=== PATIENT | female | born 1990 | race Caucasian/White ===

== ENCOUNTER 2021-11-23 03:12 | Inpatient (IN) ==
[2021-11-23] MEDS ORDERED: LACTATED RINGER'S 1,000 ML IV SCH ×2 (04:00→06:45)
--- NOTE | 2021-11-23 05:06 | History and Physical Report ---
DATE OF ADMISSION: 11/23/2021 CHIEF COMPLAINT: Ruptured membranes, jeronimo breech presentation. HISTORY OF PRESENT ILLNESS: The patient is a 31-year-old 1, para 0. General health is good. She has had an uneventful course. Her due date is 11/27/2021. Had no problems. She called stating that her membranes had ruptured at about 2:00 a.m. in the morning, she had jeronimo f luid gushing. She was seen on maternity and evaluated. She had jeronimo rupture of membranes. Pelvic exam was suspicious for breech presentation and bedside ultrasound confirmed a breech presentation wi th the head in the upper left quadrant. Presently being prepared for section. ALLERGIES: She has no known drug allergies. MEDICAL HISTORY: No history of rheumatic fever, heart disease, heart murmur, diabetes, tuberculosis. SURGICAL HISTORY: No previous surgery. FAMILY HISTORY: Mom is 50, in good health. Father at 23, motor vehicle accident. She has a hair lf-brother in good health. SOCIAL HISTORY: No smoking, no alcohol intake. Works from home. REVIEW OF SYSTEMS: HEAD: No symptoms of frequent or severe headaches. EYES: No symptoms of blurred vision or double vision. EARS: No symptoms of frequent ear infections, difficulty hearing. NOSE: No symptoms of frequent nosebleeds or difficulty breathing through her nose. THROAT: No symptoms of frequent or severe sore throat or difficulty swallowing. RESPIRATORY SYSTEM: No history of asthma, chest pain, or shortness of breath. PHYSICAL EXAMINATION: GENERAL: Well-developed, well-nourished 31-year-old white female, alert, oriented x3, cooperative, i n no acute distress, appeared her stated age. EYES: Conjunctivae pink. Sclerae white, no evidence of jaundice. EARS: Normal light reflex bilaterally. NOSE: Normal mucosa. Septum is midline. There were no polyps. THROAT: No erythema or evidence of infection. Teeth are in good state of repair. HEAD: Normocephalic, normal distribution of hair. NECK: Supple. Trachea midline. Thyroid is not enlarged. There is no adenopathy appreciated. Both carotids are of good intensity. CHEST: Clear to auscultation and percussion. No wheezes, rales or rhonchi appreciated. ABDOMEN: Term size fetus in breech presentation. Vertex was palpable in upper left quadrant. PELVIC: Cervix is about 80% effaced, posterior 1-2 cm dilated, breech presentation. MUSCULOSKELETAL: Revealed no calf tenderness. IMPRESSION OF THIS CASE: Breech presentation, jeronimo rupture of membranes, early labor. Job ID: [id number]
[2021-11-23 05:09] LABS: Hematocrit (blood only) 34.5 % (34.1-44.9); Hemoglobin 11.5 g/dl (12.0-16.0); Mean Corpuscular Hemoglobin 28.9 pg (25.0-34.0); Mean Corpuscular Hgb Conc 33.3 g/dL (32.0-36.0); Mean Corpuscular Volume 86.7 fL (80.0-100.0); Mean Platelet Volume 9.3 fL (9.4-12.3); Platelet Count 248 K/uL (130-400); RDW Coefficient of Variation 13.7 % (11.5-14.5); RDW Standard Deviation 42.6 fL (36.4-46.3); Red Blood Count 3.98 M/uL (3.93-5.22); White Blood Count 17.49 K/ul (4.8-10.8)
[2021-11-23] MEDS ORDERED: NALOXONE HCL 0.08 MG in SYRINGE 1.8 ML IV PRN (05:27)
[2021-11-23] MEDS ORDERED: NALOXONE HCL 1 MG in SODIUM CHLORIDE 0.9% 1000ML 1,000 ML IV PRN (05:27)
[2021-11-23] MEDS ORDERED: ePHEDrine sulfate 50 MG/ML AMP IV PRN (05:27)
[2021-11-23] MEDS ORDERED: diphenhydrAMINE 50 MG/ML VIAL IV PRN ×2 (05:27→23:28)
[2021-11-23] MEDS ORDERED: MoRPHine SULFATE PF 1 MG/ML 10 ML AMP/VIAL INT SPINAL ONE (05:27)
[2021-11-23] MEDS ORDERED: HYDROmorphone INJ 0.5 MG/0.5 ML SYR IV PRN (05:27)
[2021-11-23] MEDS ORDERED: ONDANSETRON INJ 2 MG/ML 2 ML VIAL IV PRN ×2 (05:27→23:28)
[2021-11-23] MEDS ORDERED: LACTATED RINGER'S 500 ML IV PRN (05:27)
[2021-11-23] MEDS ORDERED: NALOXONE HCL 0.4 MG/1 ML VIAL/CARP IV PRN (05:27)
[2021-11-23] MEDS ORDERED: NALBUPHINE HCL INJ 10 MG/ML AMP IV PRN (05:27)
--- NOTE | 2021-11-23 05:29 | Anesthesiology Consultation ---
Date of Service November 23, 2021 Assessment & Plan (1) Encounter for pre-operative examination: Chart Review Chart Review: Acceptable Risk for Surgery and Patient NOT seen in Pre Admission Testing Consults Requested none ASA ASA2 Proposed Anesthesia Anesthesia Type: MAC Spinal Risk / Benefits Reviewed With: PT / POA / Parent / Guardian, Accepts Plan and Informed Consent Obtained History Surgery Operation Date: 11/23/21 05:00 Proposed Procedures p Section in LD - Maurice Tran MD Height/Weight Height: 5 ft 8 in Weight: 106.141 kg Allergies Allergy/AdvReac Type Severity Reaction Status Date / Time No Known Allergies Allergy Unverified 11/23/21 03:31 Medications Home Medications Medication Instructions Recorded Confirmed Last Taken vit no.95-ferrous 1 tab PO DAILY 11/23/21 11/23/21 11/22/21 12:00 fumarate 28 mg-folic acid 800 mcg tablet () Active Medications Generic Name Dose Route Start Last Admin Trade Name Freq PRN Reason Stop Dose Admin Citric Acid/Sodium Citrate 30 ml 11/23/21 06:00 11/23/21 05:26 Citric Acid/Sodium Citrate 15 Ml Udc PO 11/23/21 06:01 30 ml PREOP JOHN Administration Cefoxitin Sodium 2,000 mg/ 60 mls @ 100 mls/hr 11/23/21 06:00 11/23/21 05:24 Dextrose IV 11/23/21 18:00 Infused PREOP JOHN Infusion NPO Date Last Intake of Fluids: 11/23/21 Time Last Intake of Fluids: 03:00 Date Last Intake of Solids: 11/22/21 Time Last Intake of Solids: 18:30 Exercise / Class Metabolic Activity II 4-5 Yardwork/Stairs/Walk up hill Past Family History Family History Grandfather (Maternal) Diabetes Hypertension Colon cancer Grandmother (Maternal) Breast cancer Past Surgical History Surgical History [place] teeth removed Past Anesthesia History No Hx of Anesthesia Complications and No Family Hx of Anesthesia Complications History of PONV No Hx of PONV and No Hx of Motion Sickness Social History Smoking Status: Former smoker Smoking End Date: 10 years ago Hx Alcohol Use: No Hx Substance Use: No substance use type: does not use Review of Systems no chest pain or sob Physical Exam Vital Signs Last Vital Signs Temp 36.8 C 11/23/21 03:49 Pulse 98 H 11/23/21 05:27 Resp 18 11/23/21 03:49 BP 125/77 11/23/21 05:27 Pulse Ox 98 11/23/21 05:26 ENMT Mouth: no TMJ abnormality Thyromental Distance: > or= 3.5 Finger Breadths Mallampati Class: II Neck normal visual inspection Respiratory normal respiratory effort Auscultation: lungs clear to auscultation bilaterally Cardiovascular Rate/Rhythm: regular rate and regular rhythm Musculoskeletal Spine: normal cervical ROM Neurologic moves all extremities Psychiatric Orientation: alert and oriented x 3 Testing Laboratory Results 11/23/21 04:41
[2021-11-23] MEDS ORDERED: DC INTRASPINAL MORPHINE SCH (05:30)
[2021-11-23] MEDS ORDERED: SODIUM CHLORIDE 0.9% 1000ML 1,000 ML IV SCH (05:30)
[2021-11-23] MEDS ORDERED: NO NARCOTICS OR SEDATIVES SCH (05:30)
[2021-11-23] MEDS ORDERED: MoRPHine SULFATE PF 1 MG/ML 10 ML AMP/VIAL ONE (05:36)
[2021-11-23] MEDS ORDERED: fentaNYL citrate 100 MCG/2 ML VIAL ONE (05:36)
[2021-11-23] MEDS ORDERED: OXYTOCIN 10 UNITS/ML 10ML VIAL ONE ×2 (05:52→06:14)
[2021-11-23] MEDS ORDERED: cefOXitin 2,000 MG in DEXTROSE 5% 50 ML IV SCH (06:00)
[2021-11-23] MEDS ORDERED: CITRIC ACID/SODIUM CITRATE 15 ML UDC PO SCH (06:00)
[2021-11-23] MEDS ORDERED: ONDANSETRON INJ 2 MG/ML 2 ML VIAL ONE (06:15)
[2021-11-23] MEDS ORDERED: HYDROCORTISONE ACETATE 25 MG SUPP PR PRN (06:41)
[2021-11-23] MEDS ORDERED: BENZOCAINE 20% AER SPR 82.5 GM CAN EXT PRN (06:41)
[2021-11-23] MEDS ORDERED: MAGNESIUM HYDROXIDE SUSP 30 ML UDC PO PRN (06:41)
[2021-11-23] MEDS ORDERED: DIPHTHERIA/TETANUS/PERTUSSIS 0.5 ML SYR/VIAL IM ONE (06:41)
[2021-11-23] MEDS ORDERED: KETOROLAC 30 MG/ML VIAL IV PRN (06:41)
[2021-11-23] MEDS ORDERED: SENNA 8.6 MG TAB PO PRN (06:41)
--- NOTE | 2021-11-23 06:41 | Post Operative Brief Note ---
Immediate Post Op Note v1 Date of Surgery November 23, 2021 Pre & Post Diagnosis Operation Date: 11/23/21 05:00 Pre-Op Diagnosis: Breech ruptured membranes Post-Op Diagnosis: same as pre-op I identified the patient and participated in the time-out.: Yes Procedure Operation Date: 11/23/21 05:00 Actual Procedures p Section in LD live female child at 0604(Bilateral) - Maurice Tran MD Surgeon Maurice Tran MD Boat Worker Dr Russell Estimated Blood Loss 400 Findings Consistent with Post-Op Diagnosis breech presentation Drains Nolan Catheter Anesthesia Type Spinal Complications none
--- NOTE | 2021-11-23 06:56 | Anesthesiology Progress Note ---
Date of Service November 23, 2021 Anesthesia Post Procedure Vital Signs Vital Signs: Temp Pulse Resp BP Pulse Ox 11/23/21 03:49 36.8 C 81 18 119/73 11/23/21 06:54 86 11/23/21 06:54 109/61 11/23/21 06:53 93 11/23/21 06:53 82 11/23/21 06:51 100 11/23/21 06:51 75 11/23/21 06:51 83 11/23/21 06:51 104/58 L 11/23/21 06:48 89 L 11/23/21 06:48 75 11/23/21 06:48 99/57 L 11/23/21 06:46 99 11/23/21 06:46 75 11/23/21 05:34 94 11/23/21 05:34 104 H 11/23/21 05:31 99 11/23/21 05:31 94 H 11/23/21 05:27 98 H 11/23/21 05:27 125/77 11/23/21 05:26 98 11/23/21 05:26 98 H 11/23/21 03:29 81 119/73 Pain Intensity Abdomen: Pain Intensity: 2 Transfer of Care Handoff Completed per policy Notes Mental Status: alert / awake / arousable Patient Amnestic to Procedure: Yes Nausea / Vomiting: adequately controlled Pain: adequately controlled Airway Patency, RR, SpO2: stable & adequate BP & HR: stable & adequate Hydration State: stable & adequate Neuraxial Anesthesia: was administered and sensory block is resolving Anesthetic Complications: no major complications apparent and Pt Satisfied with anesthetic care
[2021-11-23] MEDS ORDERED: OXYTOCIN 20 UNITS in LACTATED RINGER'S 1,000 ML IV SCH (07:00)
[2021-11-23] MEDS ORDERED: OXYTOCIN 10 UNITS/ML 10ML VIAL IM ONE (07:10)
--- NOTE | 2021-11-23 10:33 | Operative Report (OR) ---
DATE OF PROCEDURE: 11/23/2021 INDICATIONS FOR SURGERY: Ruptured membranes, jeronimo breech presentation. PREOPERATIVE DIAGNOSES: Ruptured membranes, jeronimo breech presentation. PROCEDURE: Primary low segment section. SURGEON: Dolores Tran MD. WATER SAFETY INSTRUCTOR: Guillaume Russell MD. ESTIMATED BLOOD LOSS: 400 mL. ANESTHESIA: Spinal. OPERATIVE FINDING AND PROCEDURE: The patient was brought to the OR table, correctly identified by francia rivera and conversation. Compression stockings were applied. Spinal anesthesia was administered. Pe rineum and vagina were painted with Betadine paint. Nolan catheter was inserted aseptically in the b ladder, connected to gravity drainage. Lower abdomen and suprapubic area was prepped with an alcohol based sterilizing solution and it was allowed to dry for 3 minutes, then it was draped in the usual fashion. After draping in usual fashion, the adequacy of the anesthesia was checked and found to be good. We then proceeded with a primary low segment section. A Pfannenstiel incision was made and carried down to the anterior fascia by sharp dissection. Hemost asis was secured by electrocauterization. Fascia was incised transversely from the underl matthew muscle by blunt and sharp dissection. Recti muscles were in the midline, exposing the peritoneum, which was carefully raised and entered. Lower uterine segment was exposed. An incision was made above the vesicouterine fold. Bladder was undermined bluntly, pushed out of the operative field. Lower uterine segment was scored with a knife, then entered with the scissors and the incisio n was extended laterally bluntly with the fingers. Jeronimo breech presentation was noted. It was grasp ed in the hips and then with slow steady pull, delivered both legs, then I reduced both arms and deli afdy the head without difficulty. Cord was allowed to pulse for 1 minute, then clamped and cut. Co rd blood was taken. The placenta was removed intact. Uterus, tubes, and ovaries were brought out through the incision. Careful anatomical approximation o f the lower uterine segment was performed. The myometrium was approximated with continuous heavy dut y chromic. The fascial layer was then approximated over this in a separate layer approximating the f ascia with a heavy duty Vicryl. One rjzeqe-kn-miqjr suture was placed in the middle because of some oozing. Then, the peritoneal edges were restored with a 3-0 chromic. Uterus, tubes, and ovaries wer e reinserted into the pelvic cavity after washing the pelvic cavity of all blood clots and debris. H emostasis was excellent. The anterior abdominal wall was approximated in layers. The peritoneum was approximated with a chromic. Recti muscles were approximated with interrupted [id number] sutur e of chromic. Fascia was closed with continuous interlocking suture of Vicryl on each side, tied in the midline. Subcutaneous was approximated with running plain and skin edges were approximated with staple clips. Job ID: [id number]
[2021-11-23] MEDS: SIMETHICONE 80 MG CHEW PO SCH ×3 (12:25→20:56)
[2021-11-23] MEDS: IBUPROFEN 600 MG TAB PO PRN ×2 (18:27→23:40)
[2021-11-23] MEDS: DOCUSATE SODIUM 100 MG CAP PO SCH (20:56)
[2021-11-23] MEDS ORDERED: diphenhydrAMINE Capsule 25 MG CAP PO PRN (23:28)
[2021-11-23] MEDS ORDERED: ZOLPIDEM TARTRATE 5 MG TAB PO PRN (23:28)
[2021-11-23] MEDS ORDERED: PROMETHAZINE HCL 25 MG in SODIUM CHLORIDE 0.9% 50 ML IV PRN (23:28)
[2021-11-23] MEDS ORDERED: MEPERIDINE HCL 50 MG/ML CARP IV PRN (23:28)
[2021-11-23] MEDS: oxyCODONE/ACETAMINOPHEN 5mg/325mg TAB PO PRN (23:40)
[2021-11-24] MEDS: IBUPROFEN 600 MG TAB PO PRN ×5 (04:27→23:28)
[2021-11-24] MEDS: oxyCODONE/ACETAMINOPHEN 5mg/325mg TAB PO PRN ×5 (04:27→23:29)
[2021-11-24 06:38] LABS: Basophils # (auto) 0.05 K/uL (0-0.2); Basophils % (auto) 0.3 %; Eosinophils # (auto) 0.16 K/uL (0-0.50); Eosinophils % (auto) 0.9 %; Hematocrit (blood only) 31.5 % (34.1-44.9); Hemoglobin 10.5 g/dl (12.0-16.0); Immature Granulocytes # (auto) 0.13 K/uL (0.00-0.02); Immature Granulocytes % (auto) 0.7 %; Lymphocytes # (auto) 2.45 K/uL (1.2-3.4); Lymphocytes % (auto) 13.7 %; Mean Corpuscular Hemoglobin 28.9 pg (25.0-34.0); Mean Corpuscular Hgb Conc 33.3 g/dL (32.0-36.0); Mean Corpuscular Volume 86.8 fL (80.0-100.0); Mean Platelet Volume 8.9 fL (9.4-12.3); Monocytes # (auto) 0.96 K/uL (0.24-0.82); Monocytes % (auto) 5.4 %; Neutrophils # (auto) 14.16 K/uL (1.4-6.5); Platelet Count 191 K/uL (130-400); RDW Coefficient of Variation 13.9 % (11.5-14.5); Red Blood Count 3.63 M/uL (3.93-5.22); White Blood Count 17.91 K/ul (4.8-10.8)
--- NOTE | 2021-11-24 07:45 | Obstetrical Progress Note ---
Date of Service November 24, 2021 Assessment & Plan Admission and Anticipated Discharge Date Admission Date: November 23, 2021 Subjective abdomen soft band non tender bowel sounds normal passing flatus bandage removed incision is clean and dry ambulating well no calf tenderness vaginal bleeding scant hgb Results & Data ([facility]) Vital Signs (Past 12 Hours) Vital Signs Temp Pulse Resp BP Pulse Ox O2 Del Method 11/24/21 04:10 36.8 C 73 18 108/71 Room Air 11/23/21 22:10 18 96 11/23/21 21:00 20 96 11/23/21 23:00 20 97 11/23/21 23:00 37.0 C 93 H 20 108/70 97 Room Air 11/23/21 20:15 18 99
[2021-11-24] MEDS: DOCUSATE SODIUM 100 MG CAP PO SCH ×2 (08:58→20:45)
[2021-11-24] MEDS: SIMETHICONE 80 MG CHEW PO SCH ×3 (08:58→20:45)
[2021-11-24] MEDS: FERROUS SULFATE 325 MG TAB PO SCH (08:58)
[2021-11-24] MEDS: PRENATAL VITAMIN 1 TAB PO SCH (08:59)
[2021-11-24] MEDS ORDERED: bisacodyL 5 MG TABEC PO SCH (20:00)
[2021-11-25] MEDS: IBUPROFEN 600 MG TAB PO PRN ×2 (05:13→11:42)
[2021-11-25] MEDS: oxyCODONE/ACETAMINOPHEN 5mg/325mg TAB PO PRN ×2 (05:13→11:42)
[2021-11-25 06:42] LABS: Hematocrit (blood only) 31.7 % (34.1-44.9); Hemoglobin 10.6 g/dl (12.0-16.0)
[2021-11-25] MEDS ORDERED: bisacodyL 10 MG SUPP PR PRN (06:42)
[2021-11-25] MEDS: FERROUS SULFATE 325 MG TAB PO SCH (07:51)
[2021-11-25] MEDS: DOCUSATE SODIUM 100 MG CAP PO SCH (07:51)
[2021-11-25] MEDS: SIMETHICONE 80 MG CHEW PO SCH (07:51)
[2021-11-25] MEDS: PRENATAL VITAMIN 1 TAB PO SCH (07:51)
--- NOTE | 2021-11-25 08:42 | Obstetrical Progress Note ---
Date of Service November 25, 2021 Assessment & Plan Admission and Anticipated Discharge Date Admission Date: November 23, 2021 Subjective abdomen soft and non tender incision is clean and dry no calf tenderness ambulating well vaginal bleeding scant hgb 10.6 Results & Data ([facility]) Vital Signs (Past 12 Hours) Vital Signs Temp Pulse Resp BP O2 Del Method 11/25/21 07:50 36.5 C 76 18 102/67 Room Air 11/24/21 23:05 37.0 C 91 H 18 117/76 Room Air
--- NOTE | 2021-11-25 09:52 | Discharge Summary (DS) ---
DATE OF SERVICE: 11/25/2021. HOSPITAL COURSE: She is 1, para 1, blood type A positive, group B strep negative, followed i n our office for care and delivery, had no problems. Called in the early hours of t he morning the day of admission. Her felt that she had ruptured membranes. She was told to c ome to maternity where diagnosis of jeronimo rupture of membranes was made. A pelvic exam revealed the presenting part to be about -2 station, 1-2 cm dilated, suspicious for breech presentation. Bedside ultrasound was done to confirm breech presentation with the head in the upper left quadrant of the ab domen. We then proceeded to do an urgent section. She had a . Everything went we ll. Blood loss was minimal. Her preoperative hemoglobin was 11.5. Postoperatively, hemoglobin was 10.6. Her bowel sounds returned within 24 hours. First postoperative day, she was passing gas, tolerating a diet well. On that day, the bandage was also removed. Second postoperative day, she was up and arou nd, eating, passing gas. Incision was clean and dry, and she requested discharge. She was discharge d to be followed in home and office, given the prescription for Percocet, and told to return to the ffice in about 7 days for removal of the dennis and to take a vitamin every day along with two supplemental calciums. Job ID: [id number]
== END 2021-11-25 12:40 | disposition home or self-care (01) | DRG 788 ==
LOC: OPB 03:12 → 4S1 03:27 → 4E1 12:19

== ENCOUNTER 2023-09-11 10:38 | Inpatient (IN) ==
--- NOTE | 2023-09-11 17:11 | History & Physical Report ---
Date of Service September 11, 2023 Assessment & Plan (1) Previous section: Plan: Repeat section at patient's request. (2) Arrested active phase of labor: History of Present Illness Chief Complaint: Active labor with cervical change. Intrauterine 38 weeks gestation. Primary Care Provider: Jose Corbett DO Patient is a 33-year-old 2 para 1's been followed in our office for care and delivery. She been well dated with a first trimester ultrasound. Her first delivery was via for breech presentation. She was up most of the night prior to coming in in the morning. Her first exam revealed the cervix to be 1 cm with some bloody discharge. After laboring periodically throughout the day. Patient states her contractions are getting stronger. Pelvic exam revealed 4 cm dilatation of the cervix. Patient diagnoses active labor. Patient requests repeat section. Allergies Allergy/AdvReac Type Severity Reaction Status Date / Time No Known Allergies Allergy Unverified 09/11/23 10:48 Home Medications Medication Instructions Recorded Confirmed Type vit no.95-ferrous 1 tab PO DAILY 11/23/21 09/11/23 History fumarate 28 mg-folic acid 800 mcg tablet () Past Med/Surg History Problem List (Updated 09/11/23 @ 17:11 by Maurice Tran MD) Arrested active phase of labor Previous section Encounter to establish care Right leg pain (Acute) Medical History delivery delivered Surgical History [place] teeth removed Family History Grandfather (Maternal) Diabetes Hypertension Colon cancer Grandmother (Maternal) Breast cancer Social History Smoking Status: Former smoker Tobacco Type: Cigarettes Second Hand Exposure: No; Do You Dip or Chew Tobacco: No; Hx Alcohol Use: No Hx Substance Use: No Preferred Language: Kenyan Communication Ability: Effective Film Casting Operator Required: No Beliefs That Will Affect Care: None marital status: Current Living Situation: Spouse Current Living Situation Comment: and daughter current occupational status: employed Feels Safe at Home: Yes Childhood Exposure to Second-Hand Smoke: Yes Diet: regular caffeine: Yes Dental Care, Regularly: Yes Physical Activity Frequency: 3-4 Times per Week Seatbelt Use: always Sunscreen Use: Yes Assistive Devices: None Physical Exam Physical Exam: Patient appears to be 33-year-old white female alert oriented x 3 in distress due to contractions. Neck was supple trachea midline there was no cervical adenopathy. Lungs were clear to auscultation and percussion. Heart had a regular rhythm S1 and S2 were normal. There was no CVA tenderness. Abdomen revealed a term size fetus with an estimated weight of over 8 pounds. Strong contractions could be palpated. Pelvic exam revealed the cervix to be 4 cm and 100% effaced. Vertex presentation. Results & Data Results & Data Vital Signs (Past 12 Hours) Vital Signs Temp Pulse Resp BP 09/11/23 14:15 18 09/11/23 14:15 36.8 C 18 09/11/23 14:15 73 09/11/23 14:15 110/72 09/11/23 13:30 18 09/11/23 13:30 18 09/11/23 10:51 36.7 C 83 20 122/72 09/11/23 10:46 83 122/72 Diagnostic Findings Active labor at 38 weeks gestation.
--- NOTE | 2023-09-11 17:40 | Anesthesiology Consultation ---
Date of Service September 11, 2023 Assessment & Plan Chart Review Chart Review: Acceptable Risk for Surgery Consults Requested none ASA ASA2E Proposed Anesthesia Anesthesia Type: Spinal Risk / Benefits Reviewed With: PT / POA / Parent / Guardian, Accepts Plan and Informed Consent Obtained History Height/Weight Height: 5 ft 7 in Weight: 104.78 kg Allergies Allergy/AdvReac Type Severity Reaction Status Date / Time No Known Allergies Allergy Unverified 09/11/23 10:48 Medications Home Medications Medication Instructions Recorded Confirmed Last Taken vit no.95-ferrous 1 tab PO DAILY 11/23/21 09/11/23 08/29/23 11:00 fumarate 28 mg-folic acid 800 mcg tablet () Active Medications Generic Name Dose Route Start Last Admin Trade Name Freq PRN Reason Stop Dose Admin Lactated Ringer's 1,000 mls @ 999 mls/hr 09/11/23 17:32 09/11/23 17:41 Lr IV 09/11/23 18:32 999 mls/hr .Q1H1M ONE Administration NPO Date Last Intake of Fluids: 09/11/23 Time Last Intake of Fluids: 17:00 Date Last Intake of Solids: 09/11/23 Time Last Intake of Solids: 06:00 Past Medical History Medical History delivery delivered Exercise / Class Metabolic Activity II 4-5 Yardwork/Stairs/Walk up hill Past Family History Family History Grandfather (Maternal) Diabetes Hypertension Colon cancer Grandmother (Maternal) Breast cancer Past Surgical History Surgical History [place] teeth removed Past Anesthesia History No Hx of Anesthesia Complications and No Family Hx of Anesthesia Complications History of PONV No Hx of PONV and No Hx of Motion Sickness Social History Smoking Status: Former smoker Do You Dip or Chew Tobacco: No Hx Alcohol Use: No Hx Substance Use: No substance use type: does not use Physical Exam Vital Signs Last Vital Signs Temp 98.2 F 09/11/23 14:15 Pulse 73 09/11/23 14:15 Resp 18 09/11/23 14:15 BP 110/72 09/11/23 14:15 ENMT Mouth: no dentition abnormality Thyromental Distance: > or= 3.5 Finger Breadths Mallampati Class: II Neck normal visual inspection Respiratory normal respiratory effort Auscultation: lungs clear to auscultation bilaterally Cardiovascular Rate/Rhythm: regular rate and regular rhythm
[2023-09-11] MEDS: LACTATED RINGER'S 1,000 ML IV ONE (17:41)
[2023-09-11] MEDS ORDERED: PHENYLEPHRINE 100MCG/ML 10ML SYR IV ONE (17:42)
[2023-09-11] MEDS ORDERED: ePHEDrine sulfate 50 MG/ML AMP ONE (17:42)
[2023-09-11] MEDS ORDERED: MoRPHine SULFATE PF 1 MG/ML 10 ML AMP/VIAL ONE (17:43)
[2023-09-11] MEDS ORDERED: fentaNYL citrate PF 100 MCG/2 ML VIAL ONE (17:43)
[2023-09-11] MEDS ORDERED: OXYTOCIN 10 UNITS/ML VIAL ONE (17:43)
[2023-09-11] MEDS ORDERED: LACTATED RINGER'S 1,000 ML IV SCH ×2 (17:45→19:30)
[2023-09-11 17:48] LABS: Hemoglobin 12.6 g/dl (12.0-16.0); Mean Corpuscular Hemoglobin 28.1 pg (25.0-34.0); Mean Corpuscular Hgb Conc 34.1 g/dL (32.0-36.0); Mean Corpuscular Volume 82.6 fL (80.0-100.0); Mean Platelet Volume 9.7 fL (9.4-12.4); Platelet Count 205 K/uL (130-400); RDW Coefficient of Variation 13.4 % (11.5-14.5); RDW Standard Deviation 39.8 fL (36.4-46.3); Red Blood Count 4.48 M/uL (4.20-5.40); White Blood Count 19.92 K/ul (4.8-10.8)
[2023-09-11] MEDS: CITRIC ACID/SODIUM CITRATE 15 ML UDC PO SCH (17:53)
[2023-09-11] MEDS: cefOXitin 2,000 MG in DEXTROSE 5 % MINI-B 50 ML IV SCH (17:56)
[2023-09-11] MEDS ORDERED: NALBUPHINE HCL 5 MG in SYRINGE 0 ML IV PRN (18:12)
[2023-09-11] MEDS ORDERED: diphenhydrAMINE 50 MG/ML VIAL IV PRN (18:12)
[2023-09-11] MEDS ORDERED: NALOXONE HCL 0.4 MG/1 ML VIAL/CARP IV PRN (18:12)
[2023-09-11] MEDS ORDERED: MoRPHine SULFATE PF 1 MG/ML 10 ML AMP/VIAL INT SPINAL ONE (18:12)
[2023-09-11] MEDS ORDERED: NALOXONE HCL 1 MG in SODIUM CHLORIDE 0.9% 1,000 ML IV PRN (18:12)
[2023-09-11] MEDS ORDERED: LACTATED RINGER'S 500 ML IV PRN (18:12)
[2023-09-11] MEDS ORDERED: NALOXONE HCL 0.08 MG in SYRINGE 1.8 ML IV PRN (18:12)
[2023-09-11] MEDS ORDERED: ONDANSETRON INJ 2 MG/ML 2 ML VIAL IV PRN (18:12)
[2023-09-11] MEDS ORDERED: ePHEDrine sulfate 50 MG/ML AMP IV PRN (18:12)
[2023-09-11] MEDS ORDERED: NO NARCOTICS OR SEDATIVES SCH (18:15)
[2023-09-11] MEDS ORDERED: SODIUM CHLORIDE 0.9% 1,000 ML IV SCH (18:15)
[2023-09-11] MEDS ORDERED: DC INTRASPINAL MORPHINE SCH (18:15)
[2023-09-11] MEDS ORDERED: SODIUM CHLORIDE 0.9% 250 ML IV PRN (18:21)
[2023-09-11] MEDS: OXYTOCIN 10 UNITS/ML 10ML VIAL IM ONE (18:34)
[2023-09-11] MEDS ORDERED: SENNA 8.6 MG TAB PO PRN (19:10)
[2023-09-11] MEDS ORDERED: HYDROCORTISONE ACETATE 25 MG SUPP PR PRN (19:10)
[2023-09-11] MEDS ORDERED: BENZOCAINE 20% SPRY 85 APPLN/85 GM CAN EXT PRN (19:10)
[2023-09-11] MEDS ORDERED: DIPHTHER/TETAN/PERTUS Vaccine (Tdap, Adol/Adult) 0.5mL IM ONE (19:10)
[2023-09-11] MEDS ORDERED: PROMETHAZINE HCL 25 MG in SODIUM CHLORIDE 0.9% 50 ML IV PRN (19:10)
[2023-09-11] MEDS ORDERED: diphenhydrAMINE Capsule 25 MG CAP PO PRN (19:10)
--- NOTE | 2023-09-11 19:18 | Operative Report ---
Post Operative Report Procedure Date: September 11, 2023 Pre & Post Diagnosis: [] Preop intrauterine 38 weeks gestation active labor. Postop delivered a live male infant moderate meconium staining nuchal cord x 1. Time Out: I identified the patient and participated in the time-out. Procedure: [] Repeat low segment section. Surgeon: [] Dr. Tran Messenger Office: [] Dr. Moreno Estimated Blood Loss: [] 850 mL. Findings: [] Normal pelvis Specimens: [] Placenta Description of Procedure: [] Patient was brought to the OR identified by armband and conversation. Spinal anesthesia was administered. Nolan catheter was inserted aseptically into the bladder connected to gravity drainage. Thigh-high compression stockings were applied. Lower abdomen was painted with an alcohol-based sterilizing solution. Solution was allowed to dry. Then draped in usual sterile fashion. Level of anesthesia was checked found to be adequate. Pfannenstiel incision was made through her previous scar. Hemostasis was secured by electrocauterization. Incision was carried down to the anterior fascia. Fascia was entered and excised bilaterally. Fascia was then from the underlying muscle by blunt and sharp dissection. Recti muscles were in the midline. Peritoneum was carefully raised and entered. A retractor was inserted into the incision to provide adequate exposure of the lower uterine segment. An incision was made above the vesicouterine fold. Lower uterine segment was entered first by cutting with a knife and then entered bluntly with a scissors. Conine fluid was noted at this time. A pectus retractor was applied to the head. After nuchal cord to been reduced head was delivered without difficulty. Shoulders were delivered without difficulty. Cord was allowed to pulse for 1 minute. Then clamped and cut. was attended by the dependency program director scrubbed and pr esent at the time of delivery. Cord blood was taken. The placenta was removed. Uterine cavity was cleansed with a clean sponge. The myometrium was then approximated with a continuous heavy-duty chromic in a vertical fashion. Then a second layer was placed with a heavy-duty Vicryl placed horizontally and this approximated the fascial layer and covered up the myometrial approximation. Hemostasis was excellent there was no bleeding the bladder edges were then restored with a running plain suture. Pelvis was cleansed of all blood clots and debris. Uterus tubes and ovaries were normal. Uterus tubes and ovaries were reinserted into the incision the retractor was removed. Careful anatomical approximation of the anterior abdominal wall was performed. Peritoneum was closed with continuous Chromic Gut suture. Recti muscles were approximated with interrupted [id number] suture of chromic catgut fascia was closed with continuous interlocking suture of heavy Vicryl from the right side of the defect to the middle and from the left side of the defect to the middle. Incision was washed with plain solution then the subcu was approximated with a running plain and the skin edges were approximated with staple clips patient tolerated procedure well left the OR in good conditions Dr. Tran dictating thank you Attestation: I attest to the content of the Intraoperative Record and any orders documented therein. Any exceptions are noted below.
--- NOTE | 2023-09-11 19:25 | Anesthesiology Progress Note ---
Date of Service September 11, 2023 Anesthesia Post Procedure Vital Signs Vital Signs: Temp Pulse Resp BP Pulse Ox 09/11/23 19:19 100 09/11/23 19:19 77 09/11/23 19:17 92 09/11/23 19:17 95 H 09/11/23 19:14 99 09/11/23 19:14 80 09/11/23 19:13 77 09/11/23 19:13 110/66 09/11/23 14:15 18 09/11/23 14:15 98.2 F 18 09/11/23 14:15 73 09/11/23 14:15 110/72 09/11/23 13:30 18 09/11/23 13:30 18 09/11/23 10:51 98.1 F 83 20 122/72 09/11/23 10:46 83 122/72 Transfer of Care Handoff Completed per policy Notes Mental Status: alert / awake / arousable and participated in evaluation Nausea / Vomiting: adequately controlled Pain: adequately controlled Airway Patency, RR, SpO2: stable & adequate BP & HR: stable & adequate Hydration State: stable & adequate Neuraxial Anesthesia: was administered and sensory block is resolving Anesthetic Complications: no major complications apparent and Pt Satisfied with anesthetic care
[2023-09-11] MEDS: KETOROLAC 30 MG/ML VIAL IV PRN (20:58)
[2023-09-11] MEDS: DOCUSATE SODIUM 100 MG CAP PO SCH (20:58)
[2023-09-11] MEDS: SIMETHICONE 80 MG CHEW PO SCH (20:58)
--- OUTSIDE RECORDS SUMMARY | 2023-09-11 21:25 | External Medical Summary | Summary of Care ---
Author Name Unknown Organization [facility] Address [address] [facility] [address] Phone [phone] Care Team Providers Care President Practicing Urologist Name Role Phone Unavailable Primary Care Provider Unavailabl e Reason for Visit * Reason Comments New Visit Encounter Details Date Type Department Care Team (Late st Contact Info) Description 09/07/2023 9:45 AM EDT Nurse Only Gynecology/Obstetrics [facility] [address] [place] [address] Gw, Nurse [employer] [facility] [address] [facility] [place] [phone] New Visit Allergies No known active allergiesdocumented as of this encounter (statuses as of 09/07/2023) Medications Medication Sig Dispensed Refills Start Date End Date Status 27-0.8 MG Oral Tablet Take 1 Tablet by mouth daily at noon. Active documented as of this encounter (statuses as of 09/07/2023) Social History Tobacco Use Types Packs/Day Years Used Date Smoking Tobacco: Never Smokeless Tobacco: Never Tobacco Cessation:Counseling Given: Not Answered Alcohol Use Standard Drinks/Week Comments Never 0 (1 standard drink = 0.6 oz pur e alcohol) Estimated Date of Delivery Comme nts Yes 09/25/2023 Based on Patient Reported Sex and Gender Information Value Date Recorded Sex Assigned at Not on file Gender Identity Not on file Sexual Orientation Not on file Job Start Date Occupation Industry Not on file Not on file Not on file documented as of this encounter Last Filed Vital Signs Vital Sign Reading Time Taken Comments Blood Pressure - - Pulse - - Temperature - - Respiratory Rate - - Oxygen Saturation - - Inhaled Oxygen Concentration - - Weight 107 kg (236 lb) 09/07/2023 9:49 AM EDT Height 170.2 cm (5' 7") 09/07/2023 9:49 AM EDT Body Mass Index 36.96 09/07/2023 9:49 AM EDT documented in this encounter Progress Notes * Johnna Lazo RN - 09/07/2023 9:56 AM EDT Pt transferring from Dr. Tran. She is aware that Dr. Nix will be doing her c- section with Dr. Tran assisting. documented in this encounter Plan of Treatment Upcoming Encounters Date Type Department Care Team (Late st Contact Info) Description 09/17/2023 8:30 AM EDT Office Visit Gynecology/Obstetrics [facility] [address] [facility] [place] [address] Gema Nix MD [address] [place] [address] [place] [address] Health Maintenance Due Date Last Done Comments Depression Screening 2001 HIV Screening 02/12/2004 Hepatitis C Screening 2007 Pap Smear 2010 DTaP,Tdap,and Td Vaccines (7 - Td or Tdap) 12/23/2017 12/24/2007, 02/21/1994, 08/28/1990, Additional history exists Cervical Cancer Screening 2019 HPV/Co-Test 2019 COVID-19 Vaccine ( season) 2022 08/27/2020 Influenza Vaccine (FLU shot) (Season Ended) 2023 Hepatitis B Completed 08/28/1990, 09/1990, 03/24/1990 GARDASIL-HPV IMMUNIZATION SERIES Completed 01/14/2007, 09/04/2006, 07/05/2006 MENINGOCOCCAL (MENACTRA/MENVEO) Aged Out No longer eligible based on patient's age to complete this topic Pneumococcal Vaccine: Pediatrics (0 to 5 Years) and At-Risk Patients (6 to 64 Years) Aged Out No longer eligible based on patient's age to complete this topic documented as of this encounter Medical Devices Not on filedocumented as of this encounter
[2023-09-11] MEDS: OXYTOCIN 30 UNITS/LR 1,003 ML IV SCH (21:52)
[2023-09-12 06:48] LABS: Hematocrit (blood only) 29.1 % (37.0-47.0); Hemoglobin 9.9 g/dl (12.0-16.0); Mean Corpuscular Hemoglobin 28.3 pg (25.0-34.0); Mean Corpuscular Volume 83.1 fL (80.0-100.0); Mean Platelet Volume 9.8 fL (9.4-12.4); Platelet Count 196 K/uL (130-400); RDW Coefficient of Variation 13.4 % (11.5-14.5); White Blood Count 24.61 K/ul (4.8-10.8)
[2023-09-12 07:12] LABS: Basophils # (auto) 0.04 K/uL (0.00-0.20); Basophils % (auto) 0.2 %; Immature Granulocytes # (auto) 0.21 K/uL (0.01-0.20); Immature Granulocytes % (auto) 0.9 %; Lymphocytes # (auto) 3.08 K/uL (1.20-3.40); Lymphocytes % (auto) 12.5 %; Monocytes # (auto) 1.04 K/uL (0.11-0.59); Monocytes % (auto) 4.2 %; Neutrophils # (auto) 20.24 K/uL (1.40-6.50); Neutrophils % (auto) 82.2 %
--- NOTE | 2023-09-12 08:56 | Obstetrical Progress Note ---
Date of Service September 12, 2023 Assessment & Plan Admission and Anticipated Discharge Date Admission Date: September 11, 2023 Results & Data Vital Signs (Past 12 Hours) Vital Signs Temp Pulse Pulse Resp BP BP Pulse Ox 09/12/23 06:33 20 100 09/12/23 05:55 20 100 09/12/23 04:32 20 97 09/12/23 03:25 20 100 09/12/23 03:25 36.8 C 70 20 106/70 100 09/12/23 02:55 20 99 09/12/23 01:55 20 100 09/12/23 00:44 20 99 09/11/23 23:55 20 98 09/11/23 23:55 09/11/23 23:55 36.8 C 78 20 102/67 98 09/11/23 22:30 18 96 09/11/23 21:50 36.9 C 67 18 109/72 96 09/11/23 21:50 18 96 09/11/23 21:50 09/11/23 21:30 94 09/11/23 21:30 80 09/11/23 21:30 94 09/11/23 21:30 84 09/11/23 21:25 95 09/11/23 21:25 89 09/11/23 21:25 94 09/11/23 21:25 88 09/11/23 21:20 94 09/11/23 21:20 88 09/11/23 21:20 93 09/11/23 21:20 87 09/11/23 21:15 94 09/11/23 21:15 82 09/11/23 21:14 94 09/11/23 21:14 85 09/11/23 21:14 110/59 L 09/11/23 21:13 36.9 C 80 16 94 09/11/23 21:10 97 09/11/23 21:10 86 09/11/23 21:07 92 09/11/23 21:07 84 09/11/23 21:05 96 09/11/23 21:05 105 H 09/11/23 21:00 98 09/11/23 21:00 85 O2 Del Method 09/12/23 06:33 09/12/23 05:55 09/12/23 04:32 09/12/23 03:25 09/12/23 03:25 Room Air 09/12/23 02:55 09/12/23 01:55 09/12/23 00:44 09/11/23 23:55 09/11/23 23:55 Room Air 09/11/23 23:55 Room Air 09/11/23 22:30 09/11/23 21:50 Room Air 09/11/23 21:50 09/11/23 21:50 Room Air 09/11/23 21:30 09/11/23 21:30 09/11/23 21:30 09/11/23 21:30 09/11/23 21:25 09/11/23 21:25 09/11/23 21:25 09/11/23 21:25 09/11/23 21:20 09/11/23 21:20 09/11/23 21:20 09/11/23 21:20 09/11/23 21:15 09/11/23 21:15 09/11/23 21:14 09/11/23 21:14 09/11/23 21:14 09/11/23 21:13 09/11/23 21:10 09/11/23 21:10 09/11/23 21:07 09/11/23 21:07 09/11/23 21:05 09/11/23 21:05 09/11/23 21:00 09/11/23 21:00
--- NOTE | 2023-09-12 09:01 | Obstetrical Progress Note ---
Date of Service September 12, 2023 Assessment & Plan Admission and Anticipated Discharge Date Admission Date: September 11, 2023 Subjective abdomen soft and non tender bowel sounds present bandage removed incision is clean and dry no calf tenderness ambulating well vaginal bleeding scant hgb 9.9 Results & Data Vital Signs (Past 12 Hours) Vital Signs Temp Pulse Pulse Resp BP BP Pulse Ox 09/12/23 06:33 20 100 09/12/23 05:55 20 100 09/12/23 04:32 20 97 09/12/23 03:25 20 100 09/12/23 03:25 36.8 C 70 20 106/70 100 09/12/23 02:55 20 99 09/12/23 01:55 20 100 09/12/23 00:44 20 99 09/11/23 23:55 20 98 09/11/23 23:55 09/11/23 23:55 36.8 C 78 20 102/67 98 09/11/23 22:30 18 96 09/11/23 21:50 36.9 C 67 18 109/72 96 09/11/23 21:50 18 96 09/11/23 21:50 09/11/23 21:30 94 09/11/23 21:30 80 09/11/23 21:30 94 09/11/23 21:30 84 09/11/23 21:25 95 09/11/23 21:25 89 09/11/23 21:25 94 09/11/23 21:25 88 09/11/23 21:20 94 09/11/23 21:20 88 09/11/23 21:20 93 09/11/23 21:20 87 09/11/23 21:15 94 09/11/23 21:15 82 09/11/23 21:14 94 09/11/23 21:14 85 09/11/23 21:14 110/59 L 09/11/23 21:13 36.9 C 80 16 94 09/11/23 21:10 97 09/11/23 21:10 86 09/11/23 21:07 92 09/11/23 21:07 84 09/11/23 21:05 96 09/11/23 21:05 105 H 09/11/23 21:00 98 09/11/23 21:00 85 O2 Del Method 09/12/23 06:33 09/12/23 05:55 05/29/24 04:32 09/12/23 03:25 09/12/23 03:25 Room Air 09/12/23 02:55 09/12/23 01:55 09/12/23 00:44 09/11/23 23:55 09/11/23 23:55 Room Air 09/11/23 23:55 Room Air 09/11/23 22:30 09/11/23 21:50 Room Air 09/11/23 21:50 09/11/23 21:50 Room Air 09/11/23 21:30 09/11/23 21:30 09/11/23 21:30 09/11/23 21:30 09/11/23 21:25 09/11/23 21:25 09/11/23 21:25 09/11/23 21:25 09/11/23 21:20 09/11/23 21:20 09/11/23 21:20 09/11/23 21:20 09/11/23 21:15 09/11/23 21:15 09/11/23 21:14 09/11/23 21:14 09/11/23 21:14 09/11/23 21:13 09/11/23 21:10 09/11/23 21:10 09/11/23 21:07 09/11/23 21:07 09/11/23 21:05 09/11/23 21:05 09/11/23 21:00 09/11/23 21:00
[2023-09-12] MEDS: PRENATAL VITAMIN 1 TAB PO SCH (09:14)
[2023-09-12] MEDS: FERROUS SULFATE 325 MG TAB PO SCH (09:14)
[2023-09-12] MEDS ORDERED: COUGH DROP (SUGAR FREE) LOZ 24 LOZ/1 BOX BUCCAL ONE (10:47)
[2023-09-12] MEDS ORDERED: ONDANSETRON INJ 2 MG/ML 2 ML VIAL IV PRN (12:13)
[2023-09-12] MEDS ORDERED: diphenhydrAMINE 50 MG/ML VIAL IV PRN (12:13)
[2023-09-12] MEDS ORDERED: KETOROLAC 30 MG/ML VIAL IV PRN (12:13)
[2023-09-12] MEDS ORDERED: MEPERIDINE HCL 50 MG/ML CARP IV PRN (12:13)
[2023-09-12] MEDS ORDERED: ZOLPIDEM TARTRATE 5 MG TAB PO PRN (12:13)
[2023-09-12] MEDS: oxyCODONE/ACETAMINOPHEN 5mg/325mg TAB PO PRN (12:46)
[2023-09-12] MEDS: IBUPROFEN 600 MG TAB PO PRN (17:35)
[2023-09-12] MEDS: MAGNESIUM HYDROXIDE SUSP 30 ML UDC PO PRN (18:32)
[2023-09-12] MEDS: bisacodyL 5 MG TABEC PO SCH (20:43)
--- NOTE | 2023-09-13 09:52 | Obstetrical Progress Note ---
Date of Service September 13, 2023 Assessment & Plan Admission and Anticipated Discharge Date Admission Date: September 11, 2023 Subjective abdomen soft and non tender incision is clean and dry no calf tenderness ambulating well vaginal bleeding scant hgb 9.0 Results & Data Vital Signs (Past 12 Hours) Vital Signs Temp Pulse Resp BP Pulse Ox O2 Del Method 09/13/23 08:20 36.7 C 85 18 100/68 Room Air 09/12/23 23:30 36.7 C 75 18 122/75 95 Room Air
--- NOTE | 2023-09-13 09:57 | Discharge Summary ---
Date of Service September 13, 2023 Admission HPI Per Admitting Provider Patient is a 33-year-old 2 para 1's been followed in our office for care and delivery. She been well dated with a first trimester ultrasound. Her first delivery was via for breech presentation. She was up most of the night prior to coming in in the morning. Her first exam revealed the cervix to be 1 cm with some bloody discharge. After laboring periodically throughout the day. Patient states her contractions are getting stronger. Pelvic exam revealed 4 cm dilatation of the cervix. Patient diagnoses active labor. Patient requests repeat section. Discharge Data Consultations 09/11/23 17:12 Consult Anesthesiology Stat Procedures Performed Operation Date: 09/11/23 18:30 Actual Procedures p Section in LD delivery of live male child at 1831 - Maurice Tran MD Hospital Course (1) delivery delivered:
--- NOTE | 2023-09-13 10:05 | Discharge Summary ---
Date of Service September 13, 2023 Admission HPI Per Admitting Provider Patient is a 33-year-old 2 para 1's been followed in our office for care and delivery. She been well dated with a first trimester ultrasound. Her first delivery was via for breech presentation. She was up most of the night prior to coming in in the morning. Her first exam revealed the cervix to be 1 cm with some bloody discharge. After laboring periodically throughout the day. Patient states her contractions are getting stronger. Pelvic exam revealed 4 cm dilatation of the cervix. Patient diagnoses active labor. Patient requests repeat section. Patient was admitted to the hospital in active labor. Been followed in our office for care and delivery. Her gestation has been well dated. Patient had a previous section for breech presentation. Patient requested repeat section for this delivery. Patient was admitted at 38 weeks gestation. She been having contractions the previous night. She was observed during the day on maternity. Her cervix went22 from 1 cm to 4 cm. She was diagnosed as being in active labor. Taken to the OR where she underwent repeat low segment section. Estimated blood loss at this time was 850 mL. Postoperatively she did well. Bowel sounds returned within 24 hours. Incision was clean and dry. She remained afebrile. However her hemoglobin dropped from about 12-9.0 at the time of discharge. She was discharged with instructions to continue taking her vitamins along with iron supplements 3 times a week. She was given prescriptions for Percocet. Discharge Data Consultations 09/11/23 17:12 Consult Anesthesiology Stat Procedures Performed Operation Date: 09/11/23 18:30 Actual Procedures p Section in LD delivery of live male child at 1831 - Maurice Tran MD
[2023-09-13] MEDS ORDERED: bisacodyL 10 MG SUPP PR PRN (19:11)
== END 2023-09-13 13:30 | disposition home or self-care (01) | DRG 788 ==
LOC: OPB 10:38 → 4S1 10:41 → 4E2 21:50